=== PATIENT | female | born 1955 | race Caucasian/White ===

== ENCOUNTER 2021-03-28 11:27 | Day surgery (SDC) | payer OTHER ==
[2021-03-28] MEDS ORDERED: CYCLOPENTOLATE 1% OPTH 2 ML ONE (11:59)
[2021-03-28] MEDS ORDERED: NA CHLORIDE 0.9% 500 ML ONE (11:59)
[2021-03-28] MEDS ORDERED: PHENYLEPHRINE 2.5% OPTH 2 ML ONE (12:00)
[2021-03-28] MEDS ORDERED: PHENYLEPHRINE 2.5% OPTH 2 ML OPTH ONE ×3 (12:15→12:45)
[2021-03-28] MEDS ORDERED: CYCLOPENTOLATE 2% OPTH 2 ML OPTH ONE ×3 (12:15→12:45)
[2021-03-28] MEDS ORDERED: propofoL 200 MG/20 ML VIAL IV ONE (12:49)
[2021-03-28] MEDS ORDERED: dexAMETHasone 4 MG/ML VIAL ONE (12:49)
[2021-03-28] MEDS ORDERED: LIDOCAINE 1% MPF 5 ML VIAL ONE (12:49)
[2021-03-28] MEDS ORDERED: FENTANYL CITR 100 MCG/2 ML ONE (12:49)
[2021-03-28] MEDS ORDERED: ONDANSETRON 4 MG/2 ML VIAL ONE (12:49)
[2021-03-28] MEDS ORDERED: BSS OPTHALMIC SOL 15 ML OPTH ONE (13:07)
[2021-03-28] MEDS ORDERED: POVIDONE-IODINE 5% EYE DROPS ONE (13:08)
[2021-03-28 13:10] VITALS: BP 116/63; TEMP 99.2; O2SAT 96
[2021-03-28] MEDS ORDERED: EPINEPHRINE/PF 1 MG/ML AMP ONE (13:12)
[2021-03-28] MEDS ORDERED: DUOVISC 1 KIT OPTH ONE (13:13)
== END 2021-03-28 14:30 | disposition home or self-care (01) ==
LOC: PRE 11:27
PROVIDERS: ATTEND Ophthalmology Retina Specialist
DX: H26.9 Unspecified cataract (principal); U07.1 COVID-19; Z53.09 Procedure and treatment not carried out because of other contraindication
CPT/HCPCS: U0003; J2704; J7040; J0171; J1100; J2405; J3010